=== PATIENT | male | born 1950 | race Caucasian/White ===

== ENCOUNTER 2016-11-27 16:28 | Inpatient (IN) | payer MEDICARE, OTHER ==
[~2016-11-27 16:28] MED LIST: ALDACTONE50 M1 PO; CENTRUM SILVER1 EAC3 PO; COUMADIN2.5 M1 PO; COUMADIN5 M2 PO; DEMADEX20 M1 PO; FEOSOL325 M1 PO; FISH OIL 11000 MG/CA PO; LIPITOR20 M1 PO; MAGNESIUM OXID400 M1 PO; MIDODRINE HCL5 M1 PO; TOPROL XL25 M1 PO; TRADJENTA5 M1 PO; TRAZODONE HCL50 M1 PO; ULTRAM50 M1 PO; ZYLOPRIM100 M1 PO
[2016-11-27 20:35] LABS: URINE SODIUM-RANDOM 12 mmol/L (20-110)
[2016-11-27 22:57] LABS: INR 1.3 INR (0.9-1.1); PROTHROMBIN TIME 15.3 SECONDS (9.0-13.6)
[2016-11-28 05:38] LABS: INR 1.3 INR (0.9-1.1); PROTHROMBIN TIME 15.2 SECONDS (9.0-13.6)
[2016-11-28 05:50] LABS: ANION GAP 14 mmol/L (0-20); BLOOD UREA NITROGEN 74 mg/dl (6-24); CALCIUM 8.8 mg/dl (8.5-10.5); CARBON DIOXIDE-VENOUS 26 mmol/L (22-32); CHLORIDE 92 mmol/l (96-110); CREATININE 2.98 mg/dl (0.60-1.30); GLUCOSE 111 mg/dL (70-110); POTASSIUM 4.6 mmol/L (3.7-5.1); SODIUM 127 mmol/L (135-145); eGFR VALUE FOR BLACK 24 mL/Min
[2016-11-29 05:24] LABS: INR 1.8 INR (0.9-1.1)
[2016-11-29 05:32] LABS: PROTHROMBIN TIME 20.9 SECONDS (9.0-13.6)
[2016-11-29 05:34] LABS: ANION GAP 12 mmol/L (0-20); BLOOD UREA NITROGEN 69 mg/dl (6-24); CALCIUM 8.5 mg/dl (8.5-10.5); CARBON DIOXIDE-VENOUS 28 mmol/L (22-32); CHLORIDE 94 mmol/l (96-110); CREATININE 2.91 mg/dl (0.60-1.30); GLUCOSE 107 mg/dL (70-110); MAGNESIUM 2.5 mg/dl (1.3-2.6); PHOSPHOROUS 3.9 mg/dl (2.5-4.9); POTASSIUM 4.6 mmol/L (3.7-5.1); SODIUM 129 mmol/L (135-145); eGFR VALUE FOR BLACK 25 mL/Min
[2016-11-29] MEDS ORDERED: ALDACTONE50 M1 PO (10:02)
[2016-11-29] MEDS ORDERED: CIPRO500 M2 PO (12:03)
== END 2016-11-29 15:30 | DRG 640 ==
LOC: PCUB 16:28
PROVIDERS: Internal Medicine; ADMIT Hospitalist
PROC: 05HC33Z Insertion of Infusion Device into Left Basilic Vein, Percutaneous Approach (ICD-10-PCS; principal; 2016-11-27)
DX: E87.1 Hypo-osmolality and hyponatremia (principal); K76.7 Hepatorenal syndrome; N17.9 Acute kidney failure, unspecified; K65.9 Peritonitis, unspecified; I50.32 Chronic diastolic (congestive) heart failure; R18.8 Other ascites; I48.2 Chronic atrial fibrillation; N18.4 Chronic kidney disease, stage 4 (severe); E11.22 Type 2 diabetes mellitus with diabetic chronic kidney disease; E78.5 Hyperlipidemia, unspecified; I12.9 Hypertensive chronic kidney disease with stage 1 through stage 4 chronic kidney disease, or unspecified chronic kidney disease; K70.9 Alcoholic liver disease, unspecified; K70.30 Alcoholic cirrhosis of liver without ascites; I48.91 Unspecified atrial fibrillation; F10.21 Alcohol dependence, in remission; Z87.891 Personal history of nicotine dependence; Z79.01 Long term (current) use of anticoagulants
CPT/HCPCS: C1729; C1751; J3010